=== PATIENT | male | born 1985 | race Caucasian/White ===

== ENCOUNTER → 2021-06-20 09:36 | Outpatient (CLI) | payer OTHER, SELFPAY ==
--- NOTE | 2021-06-20 | DI.MRI.S_ITS ---
PROCEDURE: MR LUMBAR SPINE WO CON INDICATIONS: Radiculopathy, lumbar region TECHNIQUE: Noncontrast sagittal T1 spin echo and T2 fast echo, sagittal STIR, axial T1 and T2 fast spin echo through the lumbar spine. In cases with scoliosis, additional coronal T2 fast spin echo may be performed. COMPARISON: None. FINDINGS: Image quality: Excellent. Alignment and Curvature: There is normal bony alignment. Bone Marrow: Marrow is of normal overall signal. No acute vertebral body compression fractures. Spinal Cord: Conus medullaris terminates at the L1 level. Visualized cord demonstrates normal signal and size. Paraspinous Soft Tissues: No paravertebral masses. T12-L1: Normal appearance. L1-L2: Normal appearance. L2-L3: Normal appearance. L3-L4: Normal appearance. L4-L5: Mild disc space narrowing noted. There is a high-intensity zone in the posterior annulus reflecting annular fissure or tear. Mild circumferential disc bulge and hypertrophic facet joints results in mild central stenosis. No foraminal stenosis. L5-S1: Moderate disc space narrowing and circumferential disc bulge. Hypertrophic facet joints are associated with moderate bilateral foraminal stenosis, left greater than right. IMPRESSION: 1. Mild degenerative disc disease and arthropathy in the lower lumbar spine results in moderate bilateral L5-S1 foraminal stenosis Approved by: Matty Brar M.D. on 06/20/2021 at 11:04
== END ==
DX: M51.17 Intervertebral disc disorders with radiculopathy, lumbosacral region (principal); M47.27 Other spondylosis with radiculopathy, lumbosacral region; M48.07 Spinal stenosis, lumbosacral region
CPT/HCPCS: 72148